=== PATIENT | female | born 1990 | race Caucasian/White ===

== ENCOUNTER 2019-12-18 08:45 | Outpatient (CLI) | payer OTHER, SELFPAY ==
[2019-12-18 09:39] LABS: Alanine Aminotransferase 17 U/L (4-35); Albumin Level 4.5 g/dL (3.5-5.1); Alkaline Phosphatase 78 U/L (38-126); Amylase 53 U/L (30-110); Aspartate Amino Transferase 25 U/L (14-36); Bilirubin,Total 0.3 mg/dL (0.2-1.3); Lipase 92 U/L (23-300)
== END 2019-12-18 08:46 | disposition home or self-care (01) ==
LOC: ANHLAB 08:47
PROVIDERS: PCP Internal Medicine; Visit Provider Surgery
DX: R10.84 Generalized abdominal pain (principal); Z01.818 Encounter for other preprocedural examination
CPT/HCPCS: 36415; 80076; 82150; 83690; 86850; 86900; 86901

== ENCOUNTER 2019-12-22 01:34 | Outpatient (CLI) | payer OTHER, SELFPAY ==
[2019-12-23 03:00] LABS: SARS-CoV-2 RNA PCR Negative
== END 2019-12-22 01:35 | disposition home or self-care (01) ==
LOC: ANHCOVIDDT 01:34
PROVIDERS: PCP Internal Medicine; Visit Provider Surgery
DX: Z01.812 Encounter for preprocedural laboratory examination (principal); Z20.828 Contact with and (suspected) exposure to other viral communicable diseases
CPT/HCPCS: 87635; C9803; U0003

== ENCOUNTER 2019-12-24 02:26 | Day surgery (SDC) | payer OTHER, SELFPAY ==
[2019-12-13 14:52] VITALS: BMI 25.8
--- NOTE | 2019-12-23 10:22 | P.PNAN_ITS ---
Anes - Initial Pre Proc Eval Procedure: Operation Date: 12/24/19 12:00 Proposed Procedures p Laparoscopic Cholecystectomy - Isiah Thurston DO Date/Time: 12/23/19 10:22 Surgeon: Isiah Thurston DO Pre Op Diagnosis: Generalized Abdominal Pain, Abn HIDA Scan Patient Data Age: 29 Gender: F Height: 1.78 m Weight: 81.65 kg Allergies Allergy/AdvReac Type Severity Reaction Status Date / Time No Known Allergies Allergy Verified 12/13/19 14:52 Home Medications Medication Instructions Recorded Confirmed Type etonogestrel 0.12 mg-ethinyl 1 vag ring VAGINAL ONCE 11/09/19 12/13/19 History estradiol 0.015 mg/24 hr vaginal ring multivitamin,[id number] 1 tablet PO DAILY 11/09/19 12/13/19 History cetirizine [Zyrtec] 10 mg PO DAILY 12/13/19 12/13/19 History PMFSH Past Medical History Medical History (Updated 12/23/19 @ 10:23 by Olegario Hi MD) History of seizure childhood Family History Family History Other Stomach cancer Lung cancer Diabetes mellitus Cerebrovascular accident Hypertension Social History Social History Smoking status: Never smoker Alcohol intake: current 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 Questions were solicited and answers provided to the satisfaction of the patient/family/POA.
[2019-12-24] VITALS (11 sets, daily range): BP systolic 111–148; BP diastolic 51–75; PULSE 65–114; RESP 16–18; TEMP 36.2–36.6; O2SAT 99–100
--- NOTE | 2019-12-24 10:41 | WPDANESEPPF ---
Anes - Initial Pre Proc Eval Procedure: Operation Date: 12/24/19 12:00 Proposed Procedures p Laparoscopic Cholecystectomy - Isiah Thurston DO Date/Time: 12/24/19 10:41 Surgeon: Isiah Thurston DO Pre Op Diagnosis: Generalized Abdominal Pain, Abn HIDA Scan Patient Data Age: 29 Gender: F Height: 5 ft 10 in Weight: 81.65 kg Allergies Allergy/AdvReac Type Severity Reaction Status Date / Time No Known Allergies Allergy Verified 12/13/19 14:52 Home Medications Medication Instructions Recorded Confirmed Type etonogestrel 0.12 mg-ethinyl 1 vag ring VAGINAL ONCE 11/09/19 12/13/19 History estradiol 0.015 mg/24 hr vaginal ring multivitamin,[id number] 1 tablet PO DAILY 11/09/19 12/13/19 History cetirizine [Zyrtec] 10 mg PO DAILY 12/13/19 12/13/19 History Patient hx anesthesia problems: none Family hx anesthesia problems: none [facility] Past Medical History Medical History History of seizure childhood Family History Family History Other Stomach cancer Lung cancer Diabetes mellitus Cerebrovascular accident Hypertension Social History Social History Smoking status: Never smoker Alcohol intake: current Additional occupation/education comments: Crm Administrator, Car Dealership Spiritual care concerns: No Anes - Eval Final PreProcedure Day of Procedure 12/24/19 10:41 Patient weight: normal Heart: regular rate and rhythm Lungs: clear to auscultation Airway: Mallampati scale class II Neurological: alert and oriented Last oral intake: >/= 8 hours ASA classification: II Emergent: no Anesthetic plan: proceed Anesthesia type and monitoring: general ETT and standard monitoring Informed Consent: The patient's anesthetic plan and its attendant risks and benefits were discussed with the patient/family/POA. Questions were solicited and answers provided to the satisfaction of the patient/family/POA.
[2019-12-24] MEDS: ACETAMINOPHEN 500 MG TABLET 1000 MG PO (10:44)
[2019-12-24] MEDS: KETOROLAC 15 MG/ML VIAL (*BKC) IV PUSH (10:44)
[2019-12-24] MEDS: LACTATED RINGERS 1,000 ML 30 ML IV CONT (10:44)
[2019-12-24] MEDS: SCOPOLAMINE 1.5 MG PATCH TRANSDERM (10:57)
--- NOTE | 2019-12-24 11:38 | PM.IMHP ---
H&P: HPI History of Present Illness Date/Time: 12/24/19 11:38 Chief complaint: Generalized Abdominal Pain, Abn HIDA Scan Narrative: Ngoc Lundy is a 29 year old female who presents with intermittent abdominal pain. Workup was negative except for a slightly decreased gallbladder ejection fraction. She now presents for laparoscopic cholecystectomy. Review of Systems Review of Systems: All systems reviewed & are unremarkable except as noted in HPI and below Eyes: Eyes: Denies change in vision ENT: Denies hearing loss, Denies neck pain and Denies sore throat Cardiovascular: Cardiovascular: Denies chest pain and Denies dyspnea Respiratory: Respiratory: Denies cough, Denies dyspnea and Denies wheezing Genitourinary: Genitourinary: Denies hematuria and Denies dysuria Musculoskeletal: Musculoskeletal: Denies arthralgias, Denies joint swelling and Denies neck pain Allergic/Immunologic: Allergic/Immunologic: Denies wheezing PMFSH Past Medical History Medical History History of seizure childhood Family History Family History Other Stomach cancer Lung cancer Diabetes mellitus Cerebrovascular accident Hypertension Social History Social History Smoking status: Never smoker Alcohol intake: current Additional occupation/education comments: Elevator Operator, Car Dealership Spiritual care concerns: No Meds Home Medications and Allergies Home Medications Medication Instructions Recorded Confirmed Type etonogestrel 0.12 mg-ethinyl 1 vag ring VAGINAL ONCE 11/09/19 12/24/19 History estradiol 0.015 mg/24 hr vaginal ring multivitamin,hh-kdxa-dapssmte 1 tablet PO DAILY 11/09/19 12/24/19 History cetirizine [Zyrtec] 10 mg PO DAILY 12/13/19 12/24/19 History Allergies Allergy/AdvReac Type Severity Reaction Status Date / Time No Known Allergies Allergy Verified 12/24/19 11:02 Vital Signs Vital Signs - 24 hr 12/24/19 10:30 Temperature 36.6 C Pulse Rate 76 Respiratory Rate 18 Blood Pressure 126/60 Pulse Oximetry 100 Exam Const: General: alert; No acute distress Orientation/consciousness: patient oriented x3 Limitations: no limitations HENMT: Head: normocephalic and atraumatic Ears: hearing grossly normal bilaterally General nose exam: Normal external nose present and Normal nares present Mouth: Yes Normal oral and palatal mucosa present and Yes moist mucous membranes Eyes: General: appearance normal, both eyes and all related structures Conjunctivae: conjunctivae normal Sclera: sclerae normal Pupils: Equal, round and reactive pupils present EOM: EOMs intact bilaterally Neck: Neck: normal visual inspection, full ROM, no lymphadenopathy, supple and no JVD Lymphatic: no lymphadenopathy noted Chest: Chest palpation & inspection: normal inspection of the chest Resp: Effort & Inspection: normal respiratory effort and able to speak in complete sentences Auscultation: clear to auscultation bilaterally Percussion: percussion normal Cardio: Jugular venous distension: no JVD Rate: regular rate Rhythm: regular rhythm Heart sounds: S1 normal heart sound present and S2 normal heart sound present Peripheral pulses: Peripheral pulses 2+ throughout GI: Inspection: normal to inspection GI Palp: No abdominal tenderness, Yes Soft to palpation, No Guarding due to palpation present (GI), No Hernia present and No Rebound tenderness present Percussion: Yes normal to percussion Auscultation: normal bowel sounds : General: Yes no CVA tenderness Back/Spine/Pelvis: Back: no CVA tenderness Skin: General skin exam: normal color and dry skin Neuro: General: patient oriented x3, gait normal, moves all extremities, no focal motor deficits and CN's II-XI intact bilaterally Cranial nerves: Yes Equal, round and reactive p
--- NOTE | 2019-12-24 11:40 | WPDHPUPDATE1 ---
History and Physical Update Update Date/Time: 12/24/19 11:40 History and Physical has been reviewed, including an updated exam of the patient. There are NO changes in the patient's condition. Risks, benefits, and alternatives have been discussed and questions answered. Patient agrees to proceed with procedure.
[2019-12-24] MEDS: ceFAZolin 2 GM/D5W 50 ML 2 GM/50 ML BAG IVPB (12:13)
--- NOTE | 2019-12-24 13:03 | PM.PROC ---
Procedure Note - Detailed Date of procedure: 12/24/19 Pre-op diagnosis: Generalized Abdominal Pain, Abn HIDA Scan Post-op diagnosis: same Procedure performed: Laparoscopic Cholecystectomy Description of procedure: Procedure as well as risks, benefits, and alternatives were discussed with patient. Written consent was obtained and placed in chart prior to procedure. The patient was brought back to surgical suite. Patient was placed in supine position on operating table. Time-out was done to confirm patient and procedure. Patient was then intubated by the anesthesia department. Abdomen was prepped and draped in sterile fashion using chlorhexidine prep. 0.5% bupivacaine with epinephrine was infiltrated at each site of incision. An 11 millimeter vertical incision was made at the inferior portion of the umbilicus using a 15 blade scalpel. Blunt dissection was carried down to the linea alba. The linea alba was then incised using a 15 blade scalpel. The peritoneum was then bluntly entered. An 11 millimeter trocar was inserted and cabon dioxied insuflation was used to create a pneumoperitoneum. The camera was inserted and the abdomen was inspected. The patient was placed in reverse Trendelenberg position and rotated slightly to the left. A 5 millimeter incision was made in the epigastric region, and a 5 millimeter trocar was inserted under direct visualization. Two 5 millimeter incisions were made in the right upper quadrant, and two 5 millimeter trocars were inserted under direct visualization. The gallbladder was identified and grasped at the fundus and retracted superiorly. It was then grasped at the infundibulum retracted laterally. Careful dissection around the neck of the gallbladder was performed using blunt dissection with a [place] grasper and hook electrocautery. The cystic duct was identified, and a window was created behind it. The cystic artery was also identified and a window was created behind it. The critical view of safety was identified, visualizing the cystic duct running directly into the neck of the gallbladder, and the cystic artery running directly into the wall of the gallbladder. A 5 millimeter clip communications technician was then used to place 2 clips proximally and 1 clip distally on both the cystic duct and cystic artery. They were then both transected using endoscopic scissors. Once safely away from the ray hepatitis, the gallbladder was dissected free from the liver bed using hook electrocautery. Hemostasis was achieved along the way. The gallbladder was removed completely and then removed through the umbilical port. The liver bed was then inspected. Hemostasis appeared adequate, and our clips appeared secure. The area was gently irrigated with sterile saline. No other abnormalities were seen. The patient was flattened out in bed, and 1 final inspection was made around the abdominal cavity. The ports were then removed under direct visualization, the camera was removed, and the pneumoperitoneum was released. The fascia of the umbilical incision was approximated using an 0 Vicryl [id number] suture. The skin of the incisions was approximated using 4-0 Monocryl subcuticular sutures. Exofin glue was applied on top. The patient was then awakened from anesthesia, extubated, and transferred to recovery. Anesthesia: GETA and local (0.5% bupivicaine with epinephrine) Surgeon: Isiah Thurston DO Estimated blood loss (mL): 5 Pathology: yes (gallbladder) Complications: No immediate complications Condition: stable Disposition: same day Findings: This is a 29-year-old woman who presents with recurrent generalized abdominal pains with nausea. She had not identified any particular foods that trigger her symptoms. She previously underwent CT abdomen pelvis as well as gallbladder ultrasound which were both normal. She also underwent EGD and colonoscopy which were both negative. A HIDA scan was then obtained which showed a slightly decrease
[2019-12-24] MEDS: ONDANSETRON INJ 4 MG/2 ML VIAL IV PUSH (13:38)
[2019-12-24] MEDS: fentaNYL CITRATE INJ (*CRX) 100 MCG/2 ML VIAL 25 MCG IV PUSH ×2 (13:40→13:44)
--- NOTE | 2019-12-24 14:27 | SUR.PHASEII ---
[id number]- Call to Dr. Prabhakar patient complaining of nausea at this time. Patient has scopolamine patch in place and last given 4MG zofran IVP at 1338. Per Dr[address] Prabhakar place orders for administration of phenergan 12.5MG IVP once.
[2019-12-24] MEDS: PROMETHAZINE HCL 25 MG/ML AMPUL 12.5 MG IV PUSH (14:36)
== END 2019-12-24 15:27 | disposition home or self-care (01) ==
PROVIDERS: PCP Internal Medicine; Visit Provider Surgery
PROC: 0FT44ZZ Resection of Gallbladder, Percutaneous Endoscopic Approach (ICD-10-PCS; CPT 47562; principal; 2019-12-24 12:00)
DX: K81.1 Chronic cholecystitis (principal)
CPT/HCPCS: 47562; 88304; A9270; J0690; J1170; J1885; J2250; J2405; J2550; J3010; J7030; J7120